=== PATIENT | male | born 1970 | race Caucasian/White ===

== ENCOUNTER 2018-08-13 15:24 | Emergency (ER) | payer OTHER, SELFPAY ==
[2018-08-13 15:33] VITALS: BP 130/81; PULSE 69; RESP 15; TEMP 36.9; O2SAT 99; BMI 26.3
--- NOTE | 2018-08-13 16:04 | ED_ITS ---
HPI - Wound/Laceration <Sheri Hernández PA-C - Last Filed: 08/13/18 21:47> General Chief Complaint: Wound/Laceration Stated Complaint: wound left lower leg from mountain biking Time Seen by Provider: 08/13/18 15:41 Source: patient Mode of arrival: ambulatory Limitations: no limitations History of Present Illness HPI narrative: This 48-year-old male was mountain biking earlier when he slipped on a rock and landed with his left leg on a log with a small branch protruding that went into the side of the leg causing a tear. He states that this is a little bit tender, not having any weakness or numbness in the leg. He denies any other injury. He does not know when his last tetanus vaccine was. Review of Systems <Sheri Hernández PA-C - Last Filed: 08/13/18 21:47> Review of Systems ROS Unobtainable: All systems reviewed & are unremarkable except as noted in HPI and below PFSH <Sheri Hernández PA-C - Last Filed: 08/13/18 21:47> Medical History No pertinent family history (Chronic) Vestibular schwannoma (Chronic) Surgical History No pertinent past surgical history (Chronic) Social History Smoking Status: Former smoker Social History Smoking Status: Former smoker Exam <Sheri Hernández PA-C - Last Filed: 08/13/18 21:47> Narrative Exam Narrative: GENERAL APPEARANCE: Patient sitting comfortably, in no distress. LUNGS: Clear to auscultation bilaterally. HEART: Rate and rhythm regular without murmur, normal S1 and S2, no S3 or S4. DERMATOLOGIC: Left lateral lower leg there is an avulsed irregular triangular shaped wound 4-5 mm deep with exposed tops of tendon and muscle all of which a ppear intact. Wound measures 7 cm inferior medially by 6.1 cm proximally by 5 cm inferiorly. Mildly tender. No active bleeding after compression dressing NEUROVASCULAR: Left lower extremity sensation is grossly intact, ft are warm and pink with brisk cap refill MUSCULOSKELETAL: Left lower extremity full range of motion at the foot, ankle, and knee Initial Vital Signs Initial Vital Signs: Vital Signs Temperature 98.4 F 08/13/18 15:33 Pulse Rate 69 08/13/18 15:33 Respiratory Rate 15 08/13/18 15:33 Blood Pressure 130/81 08/13/18 15:33 Pulse Oximetry 99 08/13/18 15:33 <Brii Gibbs DO - Last Filed: 08/14/18 07:59> Initial Vital Signs Initial Vital Signs: Vital Signs Temperature 98.4 F 08/13/18 15:33 Pulse Rate 69 08/13/18 15:33 Respiratory Rate 15 08/13/18 15:33 Blood Pressure 130/81 08/13/18 15:33 Pulse Oximetry 99 08/13/18 15:33 Procedures <Sheri Hernández PA-C - Last Filed: 08/13/18 21:47> Laceration Repair Laceration 1: Site: lower extremity Side (If applicable): left Size (cm): 7 Description: irregular Depth: simple, single layer and involves muscle layer Local Anesthetic: lidocaine 1% and with epi Amount of anesthesia used (mL): 13 Pre-repair: wound explored, irrigated extensively and deep structures intact Skin layer closed with: nylon Size (cm): 4-0 Number of sutures: 18 Technique: simple, interrupted and horizontal mattress Subcutaneous layer closed with: vicryl Size: 5-0 Number of sutures: 4 Technique: simple, interrupted Course <Sheri Hernández PA-C - Last Filed: 08/13/18 21:47> Orders Ordered: Discontinued Medications Diphtheria/Tetanus/Acell Pertussis (Adacel) 0.5 ml IM .ONCE ONE Stop: 08/13/18 16:03 Last Admin: 08/13/18 16:18 Dose: 0.5 ml Ibuprofen (Advil) 800 mg PO NOW ONE Stop: 08/13/18 16:05 Last Admin: 08/13/18 16:18 Dose: 800 mg Vital Signs - 8 hr 08/13/18 15:33 08/13/18 17:50 Temperature 98.4 F Pulse Rate 69 56 L Respiratory Rate 15 14 Blood Pressure 130/81 Blood Pressure [Left Arm] 137/85 Pulse Oximetry 99 97 <DO Jude Willis Last Filed: 08/14/18 07:59> Orders Ordered: Discontinued Medications Diphtheria/Tetanus/Acell Pertussis (Adacel) 0.5 ml IM .ONCE ONE Stop: 08/13/18 16:03 Last Admin: 08/13/18 16:18 Dose: 0.5 ml Ibuprofen (Advil) 800 mg PO NOW ONE Stop: 08/13/18 16:05 Last Admin: 08/13/18 16:18 Dose: 800 mg Vital Signs - 8 hr 08/13/18 15:33 08/13/18 17:50 Temperature 98.4 F Pulse Rate 69 56 L Respiratory Rate 15 14 Blood Pressure 130/81 Blood Pressure [Left Arm] 137/85 Pulse Oximetry 99 97 Discharge Plan Departure Patient Disposition: Home Clinical Impression: Laceration Discharge Date/Time: 08/13/18 18:02 Interventions: ED Discharge Assessment Last Done: 08/13/18 18:02 Instructions: DI for Laceration Repair Activity Restrictions/Additional Instructions: Please keep this wound clean and dry. It is okay to shower off quickly and pat dry. Monitor for signs of infection such as increasing redness around the wound, draining pus, severe pain or swelling, or fever, and return to ED or see your PCP right away if any of these occur. Gentle activity is okay but avoid stress on the wound. Continue [id number] ibuprofen for Aleve as needed for the next few days for pain and swelling and you can also add Tylenol if needed. Please follow-up with your PCP for a wound check towards the end of next week, sutures will likely be ready to remove in 10-14 days. Best wishes with your Vestibular schwannoma evaluation next week. I would love it if you would drop a line or a postcard and let me know how you are doing (I'm the only Sheri here) Referrals: Radha Munoz [Other] <Brii Gibbs, DO - Last Filed: 08/14/18 07:59> Cosign ED Attending Susanature Attestation: I was immediately available in the department for consultation. Documentation has been reviewed. I agree with assessment and plan.
[2018-08-13] MEDS: IBUPROFEN 400 MG TABLET 800 MG PO (16:18)
[2018-08-13] MEDS: TET,DIPH,PERTUSS(ACELL),VAC/PF 0.5 ML SYRINGE IM (16:18)
[2018-08-13 17:50] VITALS: BP 137/85; PULSE 56; RESP 14; O2SAT 97
== END 2018-08-13 18:02 | disposition home or self-care (01) ==
PROVIDERS: Emergency Provider Internal Medicine
DX: S81.812A Laceration without foreign body, left lower leg, initial encounter (principal); V19.88XA Pedal cyclist (driver) (passenger) injured in other specified transport accidents, initial encounter; Z23 Encounter for immunization
CPT/HCPCS: 13121; 13122; 90471; 99283; 90715